=== PATIENT | male | born 1975 | race Caucasian/White ===

== ENCOUNTER 2016-11-09 15:29 | Emergency (ER) | payer MEDICARE, MEDICAID ==
[2016-11-09 16:15] VITALS: TEMP 98.4; BMI 42.5
[2016-11-09] MEDS ORDERED: OXYCODONE HCL 5 MG TABLET PO ONE (16:34)
[2016-11-09] MEDS ORDERED: KETOROLAC TROMETHAMINE 10 MG TAB PO ONE (16:34)
--- NOTE | 2016-11-09 16:36 | DIRPT ---
CLINICAL DATA: Injury a few weeks ago, redness and swelling. EXAM: LEFT FOOT - COMPLETE 3+ VIEW COMPARISON: Left foot x-ray dated 11/25/2015. FINDINGS: Osseous alignment is stable. No fracture line or displaced fracture fragment. No acute- appearing cortical irregularity or osseous lesion. Bone mineralization is normal. Chronic enthesopathy again noted along the dorsal margin of the calcaneus, most prominent at the Achilles tendon insertion site. Soft tissues about the left foot are unremarkable. IMPRESSION: No acute findings. Electronically Signed By: Aniceto Duran M.D. On: 11/09/2016 16:33
--- NOTE | 2016-11-09 16:44 | EDPRACDOC ---
- General Information Chief Complaint: Foot Pain Stated Complaint: FOOT PAIN Time Seen by Provider: 11/09/16 16:33 Information Source: Patient Mode of Arrival: Car Home Medications: Home Medications Aspirin [Aspirin EC] 81 mg PO DAILY 06/28/15 Cyanocobalamin (Vitamin B-12) [Liquid B12] 1,000 mcg PO HS 06/28/15 Clindamycin [Cleocin] 300 mg PO TID #60 capsule 11/09/16 Dexlansoprazole [Dexilant] 30 mg PO DAILY 11/09/16 Oxycodone Immediate Release [Oxycodone Immediate Release (OxyIR)] 5 mg PO Q4H PRN #20 tab 11/09/16 Prednisone [Sterapred Ds] 10 mg PO DIR #21 pack 11/09/16 Allergies/Adverse Reactions: Allergies Allergy/AdvReac Type Severity Reaction Status Date / Time No Known Allergies Allergy Verified 11/09/16 16:11 - History of Present Illness Onset: 3 days HPI: PT STATES NOTICED 3 DAYS AGO LLE SWELLING MILD REDNESS AND 1ST METATARSAL PAIN AND TENDERNESS, ALSO C/O POSTERIOR CALF PAIN WITH PALPATION. Foot Problem Location: Reports: Left (LEG AND FOOT) Mechanism: Reports: None Circumstances: Reports: None Able to Bear Weight: Limited Pain Severity: Reports: Moderate Associated Signs & Symptoms: Reports: Swelling (LLE AND FOOT WITH REDNESS) ED Past Medical History - History Reviewed Yes Nurses notes reviewed and agree except as marked Travel Outside of [place] in the Last 3 Months?: No - Patient Medical History Neurological History: Reports: Migraine Cardiac History: Reports: Hypertension (RESOLVED AFTER GASTRIC BYPASS), Cardiac Catheterization Respiratory History: Reports: Asthma (25 YEARS AGO), Pneumonia GI/ History: Reports: Urinary Tract Infection, Kidney Stones Musculoskeletal History: Reports: Arthritis Psychological History: Reports: Depression, Anxiety. Denies: Substance Use Disorder Systemic History: Reports: Anemia, Diabetes (RESOLVED AFTER GASTRIC BYPASS). Denies: Cancer Additional Past Medical History: Chronic Back Pain. Multiple Knee Surgeries Surgical History: Reports: Cholecystectomy, Cardiac Catheterization, Tonsillectomy/Adnoidectomy, Other (gastric bypass, hernia repair back surgery knee surgery) - Family Medical History Reports: Hypertension, Cardiac Disorders. Denies: Diabetes, Cancer, Stroke - Social Medical History Smoking Status: Heavy tobacco smoker (5 or more cigarettes/day or daily pipe/ cigar) Social History: Denies: Substance Use Disorder ETOH: None Substance Abuse: None Lives With: Spouse Lives In: Home EDM Review of Systems - Review of Systems ROS Negative Except as Marked: Yes All systems reviewed and were negative except as marked Constitutional: No Symptoms Reported. negative: Fever, Chills, Weakness, Fatigue, Loss of Appetite Eyes: No Symptoms Reported. negative: Redness, Blurred Vision, Double Vision, Discharge, Pain, Light Sensitive, Photophobia Ears: No Symptoms Reported. negative: Pain, Hearing Loss, Drainage, Ear Pulling Throat: No Symptoms Reported. negative: Pain, Swelling Nose: No Symptoms Reported. negative: Congestion, Bleeding, Discharge, Injection, Swelling, Deformity, Ecchymosis, Tender, Abrasion, Laceration Mouth: No Symptoms Reported. negative: Pain, Drooling Respiratory: No Symptoms Reported. negative: Cough, Brassy Cough, Barky Cough, Shortness of Breath, Wheezing, Hemoptysis Cardiovascular: No Symptoms Reported. negative: Chest Pain, Palpitations, Syncope, Edema, Orthopnea, PND, Skin Mottling, Cyanosis Gastrointestinal: No Symptoms Reported. negative: Pain, Constipation, Nausea, Vomiting, Diarrhea, Melena, Formula Intolerance Genitourinary: No Symptoms Reported. negative: Dysuria, Hematuria, Frequency, Discharge, Bleeding, Testicular Pain, Neurological: No Symptoms Reported. negative: Headache, Dizziness, Seizure, Numbness, Weakness, Speech Difficulty, Gait Difficulty Musculoskeletal: No Symptoms Reported. negative: Neck, Chestwall, Ribs, Back, Shoulder, Arm, Elbow, Forearm, Wrist, Hand, Pelvis, Hip, Femur, Knee, Leg, Ankle , Foot Integumentary: Other (REDNESS AND SWELLING LLE INCLUDING FOOT, NATACHA THE 1ST MTP) . negative: Bruising, Itching, Rash, Wound Allergic/Immunologic: No Symptoms Reported. negative: Hives, Itching Hematologic: No Symptoms Reported. negative: Lymphadenopathy, Easy Bruising, Easy Bleeding Endocrine: No Symptoms Reported. negative: Weight Gain, Weight Loss Psychiatric: No Symptoms Reported. negative: Anxiety, Depression, Hallucinations, Insomnia, Suicidal - Physical Exam Constitutional: No apparent distress, Alert (Awake) Oriented to: Time, Person, Place Last recorded Vital Signs: Last Vital Signs Temp 98.4 F 11/09/16 16:11 Pulse 88 11/09/16 16:11 Resp 18 01/06/17 16:11 BP 144/96 11/09/16 16:11 Pulse Ox 97 11/09/16 16:11 Oxygen Pulse Oxygen Saturation 97 O2 Device Room Air Oxygen Flow Rate Fraction of Inspired Oxygen ( FIO2) - HEENT Head: Normal ( normocephalic) Eye Exam: Normal (PERRL, EOMI, Sclera white) Oropharynx: Normal (Pharynx:Moist without exudate,Gums-no swelling) Tympanic Membrane: Normal ENT EAC: Normal TMJ: Normal Nose: No Symptoms Reported (septum midline) Neck: Normal (FROM, trachea at midline) - Respiratory/Cardiovascular Respiratory: Normal - CTA (BBS clear to auscultation without adventitious sounds ) Cardiovascular: Normal (RRR without murmur, gallop or rub) - GI Auscultation: Normal (NABS) Palpation: Normal (Soft,No rebound or guarding, non distended) Tenderness: Non tender Lovelace's Sign: Negative - Bladder: Normal - Musculoskeletal Back: Normal (Non-Tender) Extremities: Other (TENDERNESS TO LEFT POSTERIOR CALF AND 1ST MTP JOINT) - Integumentary Skin: Normal, Warm, Dry, Other (REDNESS LLE) Lymphatics: Normal (no adenopathy) - Neurologic Memory Impaired: Normal Motor Function: Normal (Normal tone, Pulses 2+ No cyanosis or edema, FROM) Cranial Nerve: Normal (CN II-X11 intact sensation, strength 5/5) Cerebellar: Normal Mood Description: Normal Perception: Normal ED Foot Problem Phys Exam - Musculoskeletal Foot: Swelling, Moderate Tenderness (1ST MTP) Ankle: Swelling (AND REDNESS) Achilles Tendon: Normal Nail: Normal Nailbed: Normal Soft Tissue: Tender (LLE POSTERIOR CALF), Red, Swelling Digit: Normal Digit Strength: Normal Distal Function/Circulation: Normal - Integumentary Lymphatics: Normal - Differential Diagnosis Other (DVT, GOUT, CELLULITIS) - Diagnostic Imaging US LLE Image interpreted by: Radiologist Diagnostic Imaging Comments: NEGATIVE DVT FOOT Image interpreted by: Radiologist Diagnostic Imaging Comments: IMPRESSION: No acute findings. - Additional Information GOUT VS MILD CELLULITIS WILL TREAT EMPIRICALLY FOR BOTH. Decision Time to Discharge: 17:23 - Departure Disposition: Home Condition: Stable Final Diagnosis: Cellulitis Qualifiers: Site of cellulitis: extremity Site of cellulitis of extremity: lower extremity Laterality: left Qualified Code(s): L03.116 - Cellulitis of left lower limb Instructions: RICE: Routine Care for Injuries, Gout (ED), Low Purine Diet (ED) , Cellulitis (ED) Education/Counseling Given To: Patient, Family Member Education/Counseling Given Regarding: Diagnosis, Treatment, Prognosis, Follow Up Referrals: Loretta Reynolds PA [Primary Care Provider] - One Week Prescriptions: Clindamycin [Cleocin] 300 mg PO TID #60 capsule Oxycodone Immediate Release [Oxycodone Immediate Release (OxyIR)] 5 mg PO Q4H PRN #20 tab PRN Reason: Pain Prednisone [Sterapred Ds] 10 mg PO DIR #21 pack Additional Instructions: RETURN FOR WORSE OR DIFFERENT SYMPTOMS.
--- NOTE | 2016-11-09 17:45 | DIRPT ---
CLINICAL DATA: Left foot pain and swelling for 2 days. EXAM: LEFT LOWER EXTREMITY VENOUS DOPPLER ULTRASOUND TECHNIQUE: Mackenzie-scale sonography with graded compression, as well as color Doppler and duplex ultrasound were performed to evaluate the lower extremity deep venous systems from the level of the common femoral vein and including the common femoral, femoral, profunda femoral, popliteal and calf veins including the posterior tibial, peroneal and gastrocnemius veins when visible. The superficial great saphenous vein was also interrogated. Spectral Doppler was utilized to evaluate flow at rest and with distal augmentation maneuvers in the common femoral, femoral and popliteal veins. COMPARISON: None. FINDINGS: Contralateral Common Femoral Vein: Respiratory phasicity is normal and symmetric with the symptomatic side. No evidence of thrombus. Normal compressibility. Common Femoral Vein: No evidence of thrombus. Normal compressibility, respiratory phasicity and response to augmentation. Saphenofemoral Junction: No evidence of thrombus. Normal compressibility and flow on color Doppler imaging. Profunda Femoral Vein: No evidence of thrombus. Normal compressibility and flow on color Doppler imaging. Femoral Vein: No evidence of thrombus. Normal compressibility, respiratory phasicity and response to augmentation. Popliteal Vein: No evidence of thrombus. Normal compressibility, respiratory phasicity and response to augmentation. Calf Veins: No evidence of thrombus. Normal compressibility and flow on color Doppler imaging. Superficial Great Saphenous Vein: No evidence of thrombus. Normal compressibility and flow on color Doppler imaging. Venous Reflux: None. Other Findings: None. IMPRESSION: No evidence of deep venous thrombosis. Electronically Signed By: Aniceto Duran M.D. On: 11/09/2016 17:43
[2016-11-09 18:10] VITALS: BP 138/82; PULSE 82
== END 2016-11-09 17:42 | disposition home or self-care (01) ==
LOC: EDMC 15:29
DX: L03.116 Cellulitis of left lower limb (principal)
CPT/HCPCS: 73630; 93971; 99283; A9270; J3490